=== PATIENT | female | born 1975 | race Caucasian/White ===

== ENCOUNTER → 2017-07-19 | Outpatient (CLI) | payer OTHER ==
[~2017-07-19] MED LIST: ASCO1POW10 PO; ESSENTIAL OILS TOP; MTR600X PO; OXYC-57 PO; PRENTAB26 PO; VITATAB19 PO; Zinc PO; [UNRECOGNIZED DRUG - OTHER] PO
--- NOTE | 2017-07-19 14:09 | DIAGNOSTIC IMAGING REPORT ---
ABDOMEN ULTRASOUND FOR HERNIA CLINICAL HISTORY: Right lower quadrant abdominal pain. COMPARISON STUDY: None. FINDINGS: Real-time sonographic imaging of the right inguinal region was performed. No hernia identified. No masses or fluid collections. No inguinal lymphadenopathy. IMPRESSION: No evidence for a right inguinal hernia. Electronically signed by: Javier Leong M.D. 07/19/2017 2:08 PM Dictated Date/Time: 07/19/2017 2:07 PM
== END | disposition home or self-care (01) ==
LOC: C.ULTRBC 13:39
PROVIDERS: ATTEND Nurse Practitioner
DX: R10.31 Right lower quadrant pain (principal)